=== PATIENT | male | born 1970 ===

== ENCOUNTER 2020-03-26 08:11 | Emergency (ER) | payer OTHER ==
[~2020-03-26] VITALS: Ht 175.3 cm; Wt 74.4 kg
[2020-03-26] MEDS ORDERED: AVAPRO150 MG (08:27)
== END 2020-03-26 11:01 | disposition home or self-care (01) ==
LOC: ER 08:11
DX: S81.821A Laceration with foreign body, right lower leg, initial encounter (principal); W45.8XXA Other foreign body or object entering through skin, initial encounter; Y93.89 Activity, other specified; Y92.89 Other specified places as the place of occurrence of the external cause; Y99.8 Other external cause status